=== PATIENT | female | born 1990 | race Two or more races ===

== ENCOUNTER 2024-03-06 09:57 | Outpatient (CLI) | payer BC, SELFPAY | END 2024-03-06 09:58 | disposition home or self-care (01) | LOC: LKVREF 10:00 | PROVIDERS: PCP Emergency Medicine; Visit Provider Advanced Practice Midwife | DX: R53.83 Other fatigue (principal); Z13.220 Encounter for screening for lipoid disorders; Z13.1 Encounter for screening for diabetes mellitus | CPT/HCPCS: 80061; 82728; 82947; 87624 ==

== ENCOUNTER 2024-05-06 10:14 | Outpatient (CLI) | payer BC, SELFPAY ==
[2024-05-06 23:30] LABS: Chlamydia DNA Amplified* NOT DETECTED (No Detected); GC DNA Amplified* NOT DETECTED (No Detected)
== END 2024-05-06 10:15 | disposition home or self-care (01) ==
PROVIDERS: PCP Emergency Medicine; Visit Provider Physician Assistant
DX: Z11.3 Encounter for screening for infections with a predominantly sexual mode of transmission (principal); Z11.59 Encounter for screening for other viral diseases
CPT/HCPCS: 86592; 86703; 86803; 87340; 87491; 87591

== ENCOUNTER 2025-05-07 12:09 | Outpatient (CLI) | payer BC, SELFPAY | END 2025-05-07 12:10 | disposition home or self-care (01) | PROVIDERS: PCP Physician Assistant Medical; Visit Provider Physician Assistant Medical | DX: R53.83 Other fatigue (principal); Z00.00 Encounter for general adult medical examination without abnormal findings | CPT/HCPCS: 80053; 80061; 82306; 82607; 82728; 84443; 87086; 87186 ==